=== PATIENT | female | born 1970 | race African-American/Black ===

== ENCOUNTER → 2018-07-04 09:13 | Outpatient (CLI) | payer BC, SELFPAY ==
[2018-07-04 11:53] LABS: AST(SGOT) 9 U/L (15-37); Alanine Aminotransfer ALT/SGPT 16 U/L (13-56); Albumin, Serum 3.7 g/dL (3.2-5.0); Alkaline Phosphatase 35 U/L (45-117); Bilirubin, Direct 0.11 mg/dL (0.00-0.30); Globulin 3.8 g/dL (2.2-4.2); Protein, Total 7.5 g/dL (6.4-8.2)
== END ==
PROVIDERS: Visit Provider Nurse Practitioner Family
DX: B35.3 Tinea pedis (principal)
CPT/HCPCS: 36415; 80076